=== PATIENT | female | born 1950 | race Caucasian/White ===

== ENCOUNTER 2019-07-30 08:38 | Day surgery (SDC) | payer MEDICARE, SELFPAY ==
[2019-07-29 17:31] VITALS: BMI 31.5
--- NOTE | 2019-07-30 08:30 | ECG_ITS ---
Measurements Intervals [place] Rate: 60 P: 145 DE: 142 QRS: 235 QRSD: 177 T: 58 QT: 499 QTc: 499 Interpretive Statements ELECTRONIC ATRIAL PACEMAKER ELECTRONIC VENTRICULAR PACEMAKER NO FURTHER INTERPRETATION IS POSSIBLE ATYPICAL ECG Electronically Signed On 07-30-2019 12:16:26 [employer] INS[employer]ER by Vasyl Aquino D.O.
[2019-07-30 09:19] LABS: Basophils Absolute Auto 0.1 K/mm3 (0.0-0.1); Basophils Percent Auto 0.8 % (0.2-1.2); Eosinophils Absolute Auto 0.1 K/mm3 (0-0.3); Eosinophils Percent Auto 1.7 % (0-4.4); Hematocrit 42.9 % (37.0-47.0); Hemoglobin 14.3 g/dL (12.0-15.0); Immature Granulocyte Absolute 0.03 K/mm3 (0.00-0.031); Immature Granulocyte Percent A 0.4 % (0-0.5); Lymphocytes Absolute Auto 2.27 K/mm3 (0.9-3.2); Lymphocytes Percent Auto 31.8 % (18.3-44.2); Mean Corpuscular HGB Conc 33.3 g/dl (32-36); Mean Corpuscular Hemoglobin 31.4 pg (26-34); Mean Corpuscular Volume 94.1 fl (80-100); Mean Platelet Volume 10.1 fl (7.4-10.4); Monocytes Absolute Auto 0.7 K/mm3 (0.1-0.6); Monocytes Percent Auto 9.2 % (2.6-8.5); Neutrophils Percent Auto 56.1 % (45.5-73.1); Platelet Count Result 222 k/mm3 (150-375); Red Blood Count 4.56 M/mm3 (4.2-5.4); Red Cell Distribution Width 13.3 % (11.5-14.5); White Blood Count 7.1 K/mm3 (4.5-10.0)
[2019-07-30 09:34] LABS: Blood Urea Nitrogen 18 mg/dL (7-17); Calcium 10.4 mg/dL (8.4-10.2); Carbon Dioxide 25 mmol/L (22-30); Chloride 103 mmol/L (98-107); Estimated CRCL calculation 65 ml/min; Estimated Glomerular Filt Rate > 60; Glucose 91 mg/dL (65-105); Potassium 4.7 mmol/L (3.4-5.0); Sodium 142 mmol/L (137-145)
--- NOTE | 2019-07-30 10:03 | PM.IMHP ---
H&P: HPI History of Present Illness Chief complaint: GERDA Narrative: Date of service: 07/30/2019 Mari Thao is a 68 year old female with a history of nonischemic dilated cardiomyopathy and a [employer] Bi V ICD as well as hypertension, MR and SVT ablation and sleep apnea. Her ICD has reached GERDA and she is here for a generator change. She is feeling well with no recent problems with fevers etc.. Most recent echo ejection fraction 2018 was 50-55%. Review of Systems Review of Systems: Narrative: Feeling well Constitutional: Constitutional: Denies fatigue and Denies weakness Eyes: Eyes: Denies blurry vision ENT: Reports Normal hearing present Cardiovascular: Cardiovascular: Denies chest pain, Denies leg edema and Denies lightheadedness Respiratory: Respiratory: Denies dyspnea Gastrointestinal: Gastrointestinal: Denies abdominal pain and Denies hematemesis Genitourinary: Genitourinary: Denies hematuria Musculoskeletal: Musculoskeletal: Denies back pain Integumentary/Breasts: Skin/Breast: Denies rash Neurologic: Denies headache(s) Psychiatric: Psychiatric: Denies no additional psychiatric complaints [facility] Past Medical History Medical History (Updated 07/30/19 @ 10:17 by Ysabel Garcia MD) Biventricular ICD (implantable cardioverter-defibrillator) in place Implanted 2010, generator change 2019 Hypertension Nonischemic dilated cardiomyopathy PATRICIA (obstructive sleep apnea) Surgical History Surgical History (Updated 07/30/19 @ 10:09 by Ysabel Garcia MD) History of radiofrequency ablation procedure for cardiac arrhythmia SVT ablation Family History Family History (Updated 07/30/19 @ 10:11 by Ysabel Garcia MD) Father Hypertension COPD (chronic obstructive pulmonary disease) Congestive heart failure FH: mental illness Mother Hypertension Hyperlipidemia Social History Social History (Updated 07/30/19 @ 10:12 by Ysabel Garcia MD) Smoking status: Never smoker Gender identity (if verbalized by the patient): Female Comments Retired in 2017, works as a part-time teacher. Meds Home Medications and Allergies Home Medications Medication Instructions Recorded Confirmed Type furosemide [Lasix] 20 mg PO DAILY 04/22/19 07/29/19 History metoprolol succinate 100 mg PO BID 04/22/19 07/29/19 History spironolactone 25 mg PO DAILY 04/22/19 07/29/19 History Ca-D3-mag vv-dkau-vbq-mireya-bor 1 tablet PO BID 07/29/19 07/29/19 History [Calcium 600-D3 Plus (mag-zinc)] albuterol sulfate 0.63 inh INHALATION QID PRN 07/29/19 07/29/19 History allopurinol 200 mg PO DAILY 07/29/19 07/29/19 History amlodipine-olmesartan 1 tablet PO DAILY 07/29/19 07/29/19 History aspirin [Aspirin Low Dose] 81 mg PO DAILY 07/29/19 07/29/19 History bupropion HCl 300 mg PO QAM 07/29/19 07/29/19 History ergocalciferol (vitamin D2) 50,000 unit PO WEEKLY 07/29/19 07/29/19 History [Vitamin D2] escitalopram oxalate 10 mg PO DAILY 07/29/19 07/29/19 History eszopiclone 3 mg PO DAILY PRN 07/29/19 07/29/19 History rosuvastatin 40 mg PO DAILY 07/29/19 07/29/19 History vitamin E 400 unit PO DAILY 07/29/19 07/29/19 History Allergies Allergy/AdvReac Type Severity Reaction Status Date / Time aripiprazole Allergy Unknown severe Verified 07/05/19 08:56 stimulation, ? brooks mirtazapine Allergy Unknown insomnia Verified 07/05/19 08:56 Sulfa (Sulfonamide Allergy Unknown unknown Verified 07/05/19 08:56 Antibiotics) lisinopril AdvReac Mild COUGHING Verified 07/05/19 08:56 Exam Const: General: no acute distress HENMT: Mouth: Yes moist mucous membranes Other: Upper dentures noted Eyes: EOM: EOMs intact bilaterally Neck: Neck: supple Resp: Effort & Inspection: normal respiratory effort Auscultation: clear to auscultation bilaterally Cardio: Rhythm: regular rhythm GI: GI Palp: Yes Soft to palpation and No Tenderness to palpation present (GI) Skin: General skin exam: no rashes or l
--- NOTE | 2019-07-30 10:19 | WPDMODSED ---
Moderate Sedation Note-Pt Data Patient Data Diagnosis: Bi V ICD at GERDA Present Complaint: Bi V ICD at GERDA History of nonischemic cardiomyopathy with improvement of LV function Procedure to be performed/Plan: Conscious sedation new line generator change Allergies Allergy/AdvReac Type Severity Reaction Status Date / Time aripiprazole Allergy Unknown severe Verified 07/05/19 08:56 stimulation, ? brooks mirtazapine Allergy Unknown insomnia Verified 07/05/19 08:56 Sulfa (Sulfonamide Allergy Unknown unknown Verified 07/05/19 08:56 Antibiotics) lisinopril AdvReac Mild COUGHING Verified 07/05/19 08:56 Home Medications Medication Instructions Recorded Confirmed Type furosemide [Lasix] 20 mg PO DAILY 04/22/19 07/29/19 History metoprolol succinate 100 mg PO BID 04/22/19 07/29/19 History spironolactone 25 mg PO DAILY 04/22/19 07/29/19 History Ca-D3-mag jd-aogm-gkl-mireya-bor 1 tablet PO BID 07/29/19 07/29/19 History [Calcium 600-D3 Plus (mag-zinc)] albuterol sulfate 0.63 inh INHALATION QID PRN 07/29/19 07/29/19 History allopurinol 200 mg PO DAILY 07/29/19 07/29/19 History amlodipine-olmesartan 1 tablet PO DAILY 07/29/19 07/29/19 History aspirin [Aspirin Low Dose] 81 mg PO DAILY 07/29/19 07/29/19 History bupropion HCl 300 mg PO QAM 07/29/19 07/29/19 History ergocalciferol (vitamin D2) 50,000 unit PO WEEKLY 07/29/19 07/29/19 History [Vitamin D2] escitalopram oxalate 10 mg PO DAILY 07/29/19 07/29/19 History eszopiclone 3 mg PO DAILY PRN 07/29/19 07/29/19 History rosuvastatin 40 mg PO DAILY 07/29/19 07/29/19 History vitamin E 400 unit PO DAILY 07/29/19 07/29/19 History Sedation/Anesthesia: No previous sedation/anesthesia problems (including family history). [facility] Past Medical History Medical History Biventricular ICD (implantable cardioverter-defibrillator) in place Implanted 2010, generator change 2019 Hypertension Nonischemic dilated cardiomyopathy PATRICIA (obstructive sleep apnea) Surgical History Surgical History History of radiofrequency ablation procedure for cardiac arrhythmia SVT ablation Family History Family History Father Hypertension COPD (chronic obstructive pulmonary disease) Congestive heart failure FH: mental illness Mother Hypertension Hyperlipidemia Social History Social History (Updated 07/30/19 @ 10:12 by Ysabel Garcia MD) Smoking status: Never smoker Gender identity (if verbalized by the patient): Female Mod Sed Physical Exam Physical Exam Pre Procedural Exam: Normal: Appearance, Eyes, Ears, Nose, Neck, Throat, Airway (Upper denture in place), Lungs, Heart Size, Heart Rate, Heart Rhythm, Neuro Exam, Abdomen, Liver, Extremities and Skin (ICD site is well healed) Hours since solid foods: 12 Hours since liquid intake: 12 Internal Medicine - PN: Obj Da Labs CBC & Chem 7: 07/30/19 09:05 07/30/19 09:05 Labs: Laboratory Results - last 24 hr 07/30/19 07/30/19 09:05 09:05 WBC 7.1 RBC 4.56 Hgb 14.3 Hct 42.9 MCV 94.1 MCH 31.4 MCHC 33.3 RDW 13.3 Plt Count 222 MPV 10.1 Immature Gran % (Auto) 0.4 Neut % (Auto) 56.1 Lymph % (Auto) 31.8 [place] % (Auto) 9.2 H Eos % (Auto) 1.7 Baso % (Auto) 0.8 Lymph # (Auto) 2.27 [place] # (Auto) 0.7 H Eos # (Auto) 0.1 Baso # (Auto) 0.1 Abs Immat Gran (auto) 0.03 Absolute Neuts (auto) 4.0 Absolute Nucleated RBC 0.0 Nucleated RBC % 0.0 Sodium 142 Potassium 4.7 Chloride 103 Carbon Dioxide 25 BUN 18 H Creatinine 0.90 Estim Creat Clear Calc 65 Estimated GFR > 60 Glucose 91 Calcium 10.4 H ASA Classification/Sedation ASA Classification/Sedation ASA Class: III Risks: Risks, benefits and alternatives explained and patient/family accepted plan for sedation. Patient re
--- NOTE | 2019-07-30 12:00 | P.OP_ITS ---
Procedure Note - Detailed Date of procedure: 08/12/19 Pre-op diagnosis: GERDA Bi V ICD at GERDA Post-op diagnosis: same Procedure performed: conscious sedation generator change Description of procedure: PROCEDURE: Concious sedation Generator change UNDERLYING RHYTHM: NSR CONSCIOUS SEDATION: Assessment: The patient has no history of anesthesia problems. The oropharynx is clear. The patient was deemed to be a good candidate for conscious sedation. The patient had continuous hemodynamic and oximetric monitoring during the procedure. Start time: 1103 Completion time: 1148 Total conscious sedation time: 45 minutes Medications: Versed 4 mg, fentanyl 50 mcg IV push Trained observer: Carolann Hobson RN Outcome: The patient tolerated the procedure well with no complications. PROCEDURE: After informed consent, the patient is brought to the dental laboratory technician apprentice and the left prepectoral area was prepped and draped in usual fashion. The patient was given a prophylactic antibiotic intravenously with Ancef. After conscious sedation as described above, the area was anesthetized with 1% lidocaine. A skin incision is made with the Plasma Blade and carried down to the pacing capsule which was also incised. Hemostasis is obtained using the Plasma Blade. The lead/s was/were freed from the underlying capsule and the pulse generator was delivered from the pocket. The lead/s was/were disconnected from the ex isting device and reconnected to the new device. A gentle tug could not remove it/them. The device and leads were interrogated and found to be functioning appropriately. The area was copiously irrigated with antibiotic-containing solution. The device was replaced in the pocket. The subcutaneous tissues were closed in a two-layer fashion with interrupted 2 0 Vicryl sutures and the skin was closed in a continuous fashion using 4 0 Vicryl. The area was cleansed, an Aquacel dressing applied. The patient tolerated the procedure well with no complications. Estimated blood loss was negligible. DEVICE INFORMATION: New pulse generator: [employer] [id number] Existing right atrial lead: [employer] Existing Right ventricular lead: [employer] Existing left ventricular lead: [employer] THRESHOLD INFORMATION: P-wave sensing was 1.0 mV, impedance 490 Ohms, threshold 0.5 volts at 0.5 milliseconds Right ventricular lead: R-wave sensing greater than 12 mV, impedance 490 Ohms, threshold 1.25 volts at 0.5 milliseconds Left ventricular lead: Impedance 410 Ohms, threshold 0.5 volts at 0.5 millisecond RV DF lead: Impedance 89 Ohms Implants: [employer]/ [place] biventricular ICD, pulse generator model number [id number] Anesthesia: local ( with conscious sedation) Surgeon: Ysabel Garcia MD Estimated blood loss (mL): 5 Drains: No Packing: No Pathology: none sent Complications: No immediate complications Condition: stable Disposition: same day Findings: Uneventful pulse generator change.
[2019-07-30 12:05] VITALS: BP 121/81; PULSE 69; RESP 14; TEMP 36.3; O2SAT 94
[2019-07-30 12:20] VITALS: BP 115/62; PULSE 63; RESP 14; O2SAT 92
[2019-07-30 12:31] VITALS: BP 108/53; PULSE 72; RESP 16; O2SAT 96
[2019-07-30 12:50] VITALS: BP 120/68; PULSE 74; RESP 18; O2SAT 95
[2019-07-30 13:05] VITALS: BP 117/68; PULSE 68; RESP 17; O2SAT 94
--- NOTE | 2019-07-30 13:34 | SUR.PHASEII ---
1315-pt given D/C orders and instructions. Pressure dressing removed per MD order. Aquacel remains intact and without any evidence of bleeding or discharge. Confirmed antibiotic prescription sent to pharmacy properly. PIV removed intact. Taken via wheelchair to waiting vehicle. No distress noted at time of departure.
== END 2019-07-30 13:15 | disposition home or self-care (01) ==
PROVIDERS: PCP Physician Assistant; Visit Provider Internal Medicine Cardiovascular Disease
PROC: 0JPT0PZ Removal of Cardiac Rhythm Related Device from Trunk Subcutaneous Tissue and Fascia, Open Approach (ICD-10-PCS; CPT 33262; principal; 2019-07-30 10:00)
DX: Z45.02 Encounter for adjustment and management of automatic implantable cardiac defibrillator (principal); I42.0 Dilated cardiomyopathy; I10 Essential (primary) hypertension; G47.33 Obstructive sleep apnea (adult) (pediatric); Z79.82 Long term (current) use of aspirin
CPT/HCPCS: 33262; 36415; 80048; 85025; 93005; C1882; J0690; J2250; J3010; J7040

== ENCOUNTER → 2020-12-25 15:19 | Outpatient (CLI) | payer MEDICARE, SELFPAY ==
--- NOTE | ~2020-12-25 | MM_ITS ---
EXAMINATION: MM screening tyron BI w tio HISTORY: Screening TECHNIQUE: Craniocaudal and mediolateral oblique 3-D tomosynthesis images were obtained and synthetic 2-D images were generated. CAD analysis was submitted and interpreted. COMPARISON: Comparison to multiple prior studies sequentially, with oldest reviewed study dated 01/20. BREAST PARENCHYMAL COMPOSITION: There are scattered areas of fibroglandular density. FINDINGS: There is a new 8mm mass in the posterior central aspect of the left breast. The right breas t is stable without evidence for malignancy. IMPRESSION: 1. New 8 mm left breast mass. 2. Additional spot compression and mediolateral views with possible follow-up breast ultrasound recom mended. BI-RADS Category 0: Incomplete: Needs additional imaging evaluation. Reviewed, dictated and finalized at location A. IMPRESSION: 1. New 8 mm left breast mass. 2. Additional spot compression and mediolateral views with possible follow-up b reast ultrasound recommended. BI-RADS Category 0: Incomplete: Needs additional imaging evaluation.
== END ==
PROVIDERS: Visit Provider Physician Assistant
DX: Z12.31 Encounter for screening mammogram for malignant neoplasm of breast (principal); R92.8 Other abnormal and inconclusive findings on diagnostic imaging of breast
CPT/HCPCS: 77063; 77067

== ENCOUNTER 2022-03-02 07:49 | Emergency (ER) | payer OTHER, MEDICARE, SELFPAY ==
[2022-03-02] VITALS (19 sets, daily range): BP systolic 107–129; BP diastolic 60–77; PULSE 67–77; RESP 14; TEMP 36.8; O2SAT 87–95
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
--- NOTE | 2022-03-02 07:56 | ECG_ITS ---
Measurements Intervals [place] Rate: 72 P: 7 ND: 201 QRS: -11 QRSD: 119 T: 87 QT: 374 QTc: 412 Interpretive Statements ATRIAL SENSE- ELECTRONIC VENTRICULAR PACEMAKER BASELINE ARTIFACT- I, III, AVR, AVL, AVF NO FURTHER INTERPRETATION IS POSSIBLE ATYPICAL ECG COMPARED TO ECG 07/30/2019 12:08:42 NO SIGNIFICANT CHANGES Electronically Signed On 03-02-2022 10:36:35 CDT by Vasyl Aquino D.O.
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
[2022-03-02 08:30] LABS: Basophils Absolute Auto 0.1 K/mm3 (0.0-0.1); Basophils Percent Auto 0.9 % (0.2-1.2); Eosinophils Absolute Auto 0.2 K/mm3 (0-0.3); Eosinophils Percent Auto 2.1 % (0-4.4); Hematocrit 40.7 % (37.0-47.0); Hemoglobin 13.1 g/dL (12.0-15.0); Immature Granulocyte Absolute 0.02 K/mm3 (0.00-0.031); Immature Granulocyte Percent A 0.3 % (0-0.5); Lymphocytes Absolute Auto 1.98 K/mm3 (0.9-3.2); Lymphocytes Percent Auto 28.2 % (18.3-44.2); Mean Corpuscular HGB Conc 32.2 g/dl (32-36); Mean Corpuscular Hemoglobin 31.9 pg (26-34); Mean Platelet Volume 10.7 fl (7.4-10.4); Monocytes Absolute Auto 0.7 K/mm3 (0.1-0.6); Neutrophils Absolute Auto 4.1 K/mm3 (1.3-6.7); Neutrophils Percent Auto 58.5 % (45.5-73.1); Platelet Count Result 163 k/mm3 (150-375); Red Blood Count 4.11 M/mm3 (4.2-5.4); Red Cell Distribution Width 13.4 % (11.5-14.5)
[2022-03-02 08:41] LABS: Prothrombin Time 12.5 Seconds (11.1-14.7)
[2022-03-02 08:42] LABS: Partial Thromboplastin Time 31.1 SECONDS (22.3-36.8)
[2022-03-02 08:46] LABS: Alanine Aminotransferase 35 U/L (6-35); Albumin Level 4.7 g/dL (3.5-5.1); Alkaline Phosphatase 89 U/L (38-126); Anion Gap 12 mmol/L (8-16); Aspartate Amino Transferase 36 U/L (14-36); Bilirubin,Total 0.4 mg/dL (0.2-1.3); Blood Urea Nitrogen 25 mg/dL (7-17); Calcium 10.1 mg/dL (8.4-10.2); Carbon Dioxide 24 mmol/L (22-30); Chloride 105 mmol/L (98-107); Estimated CRCL calculation 33 ml/min; Estimated Glomerular Filt Rate 30; Glucose 98 mg/dL (65-110); Potassium 4.7 mmol/L (3.4-5.0); Sodium 141 mmol/L (137-145)
[2022-03-02 08:57] LABS: Troponin I < 0.012 ng/mL (0.000-0.034)
--- NOTE | 2022-03-02 09:45 | PC.NURSE ---
Pt desating. placed on 2L O2 by nasal cannula. informed.
[2022-03-02] MEDS: SODIUM CHLORIDE 0.9% IV 1,000 ML 100 ML IV CONT (10:06)
== END 2022-03-02 11:57 | disposition short-term general hospital (02) ==
PROVIDERS: Emergency Provider Emergency Medicine; PCP Physician Assistant
DX: S22.20XA Unspecified fracture of sternum, initial encounter for closed fracture (principal); V49.49XA Driver injured in collision with other motor vehicles in traffic accident, initial encounter; N63.20 Unspecified lump in the left breast, unspecified quadrant; I10 Essential (primary) hypertension; I42.0 Dilated cardiomyopathy; G47.33 Obstructive sleep apnea (adult) (pediatric); Z95.810 Presence of automatic (implantable) cardiac defibrillator; Z79.82 Long term (current) use of aspirin; Z79.51 Long term (current) use of inhaled steroids
CPT/HCPCS: 36415; 71260; 80053; 84484; 85025; 85610; 85730; 93005; 96365; 96366; 99285; J0131; J7030; Q9967

== ENCOUNTER → 2022-11-30 09:16 | Outpatient (CLI) | payer MEDICARE, SELFPAY ==
--- NOTE | ~2022-11-30 | US_ITS ---
Corrected Report Correction to Ordering Provider 12/09/2022 Marcelo This report was recreated on 12/09/22. Original report was signed by Jl Jama M.D. on 11/30/2022 11:42 CDT Thyroid ultrasound. Clinical History: Subclinical hyperthyroidism Findings: Real-time sonography of the thyroid gland was performed. The right lobe measures 6.6 x 3.1 x 4.5 cm. The left lobe measures 5.3 x 2.1 x 1.8 cm. The isthmus is 5 mm in AP diameter. There is a heterogeneous solid circumscribed nodule the right mid to lower pole measuring 3.8 x 3.6 x 3.9 cm. At the right upper pole, there is a 0.8 cm nodule with otherwise similar imaging characteristics. There are several hypoechoic left thyroid lobe nodules, largest measuring 1.3 cm in maximum diameter. Impression: 3.9 cm TR-4 nodule in the right mid to lower pole. FNA recommended to establish a histologic diagnosis. Additional smaller thyroid nodules, as detailed above. Annual follow-up recommended for these nodules. Reviewed, dictated and finalized at location . MTDD Impression: 3.9 cm TR-4 nodule in the right mid to lower pole. FNA recommended to establish a histologic diagnosis. Additional smaller thyroid nodules, as detailed above. Annual follow-up recomme nded for these nodules.
== END ==
PROVIDERS: PCP Physician Assistant
DX: E05.90 Thyrotoxicosis, unspecified without thyrotoxic crisis or storm (principal); E04.2 Nontoxic multinodular goiter
CPT/HCPCS: 76536

== ENCOUNTER 2023-09-29 08:45 | Outpatient (RCR) | payer MEDICARE, SELFPAY ==
--- NOTE | 2023-08-16 10:33 | OPREHPOC ---
Outpatient Therapy Plan of Care This is a Multidisciplinary Plan of Care that may contain components documented by all disciplines (PT, OT, and ST.) PT Problem 1 PT Problem #1 Knowledge Deficit PT Goal 1 Goal *indep with HEP PT Problem 2 PT Problem #2 Pain PT Goal 1 Goal 1* pain rating at worst of 6/10 2* pt report headaches every other day 3* self assessment Neck Disability Index score of 30% limitation 4* cervical rotation to L without pain increase PT Problem 3 PT Problem #3 Impaired Flexibility PT Goal 1 Goal improve cervical ROM for driving and self care tasks 1* rotation L 60' PT Problem 4 PT Problem #4 Impaired Strength PT Goal 1 Goal increase cervical-thoracic and shoulder strength, to increase self care and home task performance: 1* pt stand with minimal forward shoulder rotation 2* pt perform sitting strengthening exercises x 20 reps
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
--- NOTE | 2023-08-29 14:40 | PCPTNOTE ---
Pt no showed visit today, she had times confused. She was reminded of Monday's appt. at 11:15.
--- NOTE | 2023-09-07 12:46 | PCPTNOTE ---
Pt canceled due after going grocery shopping and was too tired to make therapy.
--- NOTE | 2023-09-20 12:47 | PCPTNOTE ---
pt did not show for today's reevaluation appt. Called her, she stated she forgot about appt and wanted to reschedule.
--- NOTE | 2023-09-29 09:15 | PCPTNOTE ---
pt did not show for today's reeval appt. Called her and left her voice mail about missed appt.
--- NOTE | 2023-10-17 14:15 | PTOPDC ---
Assessment and note entered by Lorraine Jo, PT Discharge Information Assessment Status Discharge - Pt Not Present Diagnosis neck and shoulder pain Onset Jun 2023 Assessment PT Clinical Summary Mari has received 7 PT sessions. She did not show for 2 scheduled reevaluation appointments in September. Therefore, she will be discharged at this time. The goals were not addressed. Plan of Care PT Services Indicated No
== END 2023-10-17 14:36 | disposition home or self-care (01) ==
LOC: ANHPT 08:45
PROVIDERS: PCP Physician Assistant; Visit Provider Physician Assistant
DX: M54.2 Cervicalgia (principal); M60.11 Interstitial myositis, shoulder
CPT/HCPCS: 97110; 97140; 97162; 97530; 99199

== ENCOUNTER 2025-03-27 08:55 | Outpatient (CLI) | payer MEDICARE, SELFPAY ==
--- NOTE | ~2025-03-27 | US_ITS ---
EXAMINATION: US aorta DATE: 03/27/2025 10:10 INDICATION: Abdominal aortic aneurysm screening. Family history of abdominal aortic aneurysm. TECHNIQUE: Grayscale, color Doppler, and pulsed Doppler images of the aorta and common iliac arteries were obtained. COMPARISON: Ultrasound 01/11/17 FINDINGS: The aorta is normal in caliber. The right common iliac artery is normal in caliber. The left common iliac artery is normal in caliber. IMPRESSION: 1. No abdominal aortic aneurysm. Reviewed, dictated and finalized at location E.
--- OUTSIDE RECORDS SUMMARY | 2025-03-27 09:33 | XMS_ITS | Encounter Summary ---
Author Organization [facility] Care Team Providers Care Diesel Lube Tech Name Role Phone Renay Mckeon RN Unavailable [phone] Ryley Suárez MD Unavailable [phone] Billie Ames NP Primary Care Provider [phone] Encounter Details Date Type Department Care Team (Latest Contact Info) Description 10/04/2016 Orders Only [facility] Provider, MD Mary Anne [address] [place] [address] Social History Tobacco Use Types Packs/Day Years Used Date Smoking Tobacco: Former Alcohol Use Standard Drinks/Week Comments Yes 0 (1 standard drink = 0.6 oz pur e alcohol) Comments Unknown Sex and Gender Information Value Date Recorded Sex Assigned at Female 08/27/2018 11:46 AM CDT Legal Sex Female 8:15 AM TRANSFORMATION ARCHITECT Gender Identity Female 08/27/2018 11:46 AM CDT Sexual Orientation Straight 08/27/2018 11 :46 AM CDT documented as of this encounter Plan of Treatment Not on file documented as of this encounter Procedures Procedure Name Priority Date/Time Associated Diagnosis Comments CARDIOLOGY REPORT 10/04/2016 12: 00 AM CDT documented in this encounter Results * CARDIOLOGY REPORT (10/04/2016 12:00 AM CDT) Anatomical Region Laterality Modality Other Narrative 10/04/2016 12:00 AM CDT Ordered by an unspecified provider. us Historical Provider [facility] FAHAD HANEY Final Result documented in this encounter Visit Diagnoses Not on filedocumented in this encounter Care Teams Diesel Lube Tech Relationship Specialty Start Date End Date Billie Ames NP [address] [place] [address] PCP - General Family Medicine 08/19/24 Renay Mckeon, RN Solution Developer 03/09/22 03/17/22 Ryley Suárez MD [address] [place] [address] Referring Physician Internal Medicine 01/19/23 documented as of this encounter
--- OUTSIDE RECORDS SUMMARY | 2025-03-27 09:33 | XMS_ITS | Encounter Summary ---
Author Organization [facility] Address [address] [facility] [address] [place] [address] Care Team Providers Care Warehouseman Name Role Phone Renay Mckeon RN Unavailable [phone] Ryley Suárez MD Unavailable [phone] Billie Ames NP Primary Care Provider [phone] Encounter Details Date Type Department Care Team (Late st Contact Info) Description 08/01/2016 Orders Only [facility] Provider, MD Mary Anne [address] [place] [address] Social History Tobacco Use Types Packs/Day Years Used Date Smoking Tobacco: Former Alcohol Use Standard Drinks/Week Comments Yes 0 (1 standard drink = 0.6 oz pur e alcohol) Comments Unknown Sex and Gender Information Value Date Recorded Sex Assigned at Female 08/27/2018 11:46 AM CDT Legal Sex Female 8:15 AM OPHTHALMIC LENS INSPECTOR Gender Identity Female 08/27/2018 11:46 AM CDT Sexual Orientation Straight 08/27/2018 11 :46 AM CDT documented as of this encounter Plan of Treatment Not on file documented as of this encounter Procedures Procedure Name Priority Date/Time Associated Diagnosis Comments CARDIOLOGY REPORT 08/01/2016 12: 00 AM OPHTHALMIC LENS INSPECTOR CARDIOLOGY REPORT 08/01/2016 documented in this encounter Results * CARDIOLOGY REPORT (08/01/2016 12:00 AM OPHTHALMIC LENS INSPECTOR) Anatomical Region Laterality Modality Other Narrative 08/01/2016 12:00 AM OPHTHALMIC LENS INSPECTOR Ordered by an unspecified provider. us Historical Provider [facility] PROCE DURES Final Result * CARDIOLOGY REPORT (08/01/2016) Anatomical Region Laterality Modality Other Narrative 08/01/2016 Ordered by an unspecified provider. us Historical Provider [facility] PROCE DURES Final Result documented in this encounter Visit Diagnoses Not on filedocumented in this encounter Care Teams Warehouseman Relationship Specialty Start Date End Date Billie Ames NP [address] [place] [address] PCP - General Family Medicine 08/19/24 Renay Mckeon, RN Neurology Tech 03/09/22 03/17/22 Ryley Suárez MD [address] [place] [address] Referring Physician Internal Medicine 01/19/23 documented as of this encounter
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
--- OUTSIDE RECORDS SUMMARY | 2025-03-27 09:33 | XMS_ITS | Encounter Summary ---
Author Organization [facility] Medical Group Address [address] [facility] [address] [place] [address] Care Team Providers Care Business Account Manager Name Role Phone Renay Mckeon RN Unavailable [phone] Ryley Suárez MD Unavailable [phone] Billie Ames NP Primary Care Provider [phone] Encounter Details Date Type Department Care Team (Late st Contact Info) Description 09/13/2016 Orders Only [facility] Provider, MD Mary Anne [address] [place] [address] Social History Tobacco Use Types Packs/Day Years Used Date Smoking Tobacco: Former Alcohol Use Standard Drinks/Week Comments Yes 0 (1 standard drink = 0.6 oz pur e alcohol) Comments Unknown Sex and Gender Information Value Date Recorded Sex Assigned at Female 08/27/2018 11:46 AM CDT Legal Sex Female 8:15 AM ORTHOTICS PROSTHETICS ASSISTANT Gender Identity Female 08/27/2018 11:46 AM CDT Sexual Orientation Straight 08/27/2018 11 :46 AM CDT documented as of this encounter Plan of Treatment Not on file documented as of this encounter Procedures Procedure Name Priority Date/Time Associated Diagnosis Comments CARDIOLOGY REPORT 09/13/2016 documented in this encounter Results * CARDIOLOGY REPORT (09/13/2016) Anatomical Region Laterality Modality Other Narrative 09/13/2016 Ordered by an unspecified provider. us Historical Provider [facility] FAHAD HANEY Final Result documented in this encounter Visit Diagnoses Not on filedocumented in this encounter Care Teams Business Account Manager Relationship Specialty Start Date End Date Billie Ames NP [address] [place] [address] PCP - General Family Medicine 08/19/24 Renay Mckeon, LAWANDA Account Coordinator 03/09/22 03/17/22 Ryley Suárez MD [address] [place] [address] Referring Physician Internal Medicine 01/19/23 documented as of this encounter
--- OUTSIDE RECORDS SUMMARY | 2025-03-27 09:33 | XMS_ITS | Encounter Summary ---
Author Organization [facility] Address [address] [place] [address] Care Team Providers Care Metal Weigher Name Role Phone Marcelino Wilcox PA-C Primary Care Provider [phone] Reason for Visit * Reason Onset Date Comments MEDICATION REFILL 12/13/2023 Encounter Details Date Type Department Care Team (Late st Contact Info) Description 12/13/2023 Refill [facility] - Endocrinology [address] [place] [address], [place] [id number] Aaron Trujillo MD [address] [place] [address] MEDICATION REFILL Social History Tobacco Use Types Packs/Day Years Used Date Smoking Tobacco: Former Cigarettes 0.3 25 0 11/19/1968 - 08/29/1992 Smokeless Tobacco: Never Alcohol Use Standard Drinks/Week Comments Not Currently [...] money to buy more. Never true 03/08/20 Within the past 12 months, t he food you bought just didn't last and you didn't have money to get more. Never true 03/08/2022 Comments Unknown Sex and Gender Information Value Date Recorded Sex Assigned at Not on file Legal Sex Female 6:52 PM SPLICING SUPERVISOR Gender Identity Not on file Sexual Orientation Not on file documented as of this encounter Functional Status * Is person deaf or have serious hearing difficulty? Answer Date of Assessment Author No 03/03/2022 11:00 PM CDT Volodymyr Ryder RN * Is person blind or have serious difficulty seeing? Answer Date of Assessment Author No 03/03/2022 11:00 PM CDT Volodymyr Ryder RN * Does person have serious difficulty walking/climbing stairs? Answer Date of Assessment Author No 03/03/2022 11:00 PM CDT Volodymyr Ryder RN * Does person have difficulty dressing/bathing? Answer Date of Assessment Author No 03/03/2022 11:00 PM CDT Volodymyr Ryder RN * Does person have difficulty doing errands alone? Answer Date of Assessment Author No 03/03/2022 11:00 PM CDT Volodymyr Ryder RN documented as of this encounter Mental Status * Does person have difficulty concentrating/remembering/making decisions? Answer Entry Date Author No 03/03/2022 11:00 PM LISAT Volodymyr Ryder RN documented in this encounter Miscellaneous Notes * Telephone Encounter - Nena Ricks LPN - 12/13/2023 8:56 AM CDT Duplicate refill request documented in this encounter Plan of Treatment Not on file documented as of this encounter Visit Diagnoses Not on filedocumented in this encounter Care Teams Metal Weigher Relationship Specialty Start Date End Date Marcelino Wilcox PA-C [address] [place] [phone] PCP - General Physician Band Instrument Repairer 03/02/22 documented as of this encounter
--- OUTSIDE RECORDS SUMMARY | 2025-03-27 09:33 | XMS_ITS | Encounter Summary ---
Author Organization [facility] Address [address] [facility] [place] [address] Care Team Providers Care Tip Puncher Name Role Phone Marcelino Wilcox PA-C Primary Care Provider [phone] Encounter Details Date Type Department Care Team (Late st Contact Info) Description 12/06/2022 Telephone [facility] - Endocrinology [address] [place] [phone] Janie Ramos, DO [address] [place] [address] Social History Tobacco Use Types Packs/Day Years [...] on file Legal Sex Female 6:52 PM BREAKER UP Gender Identity Not on file Sexual Orientation [...] encounter Miscellaneous Notes * Telephone Encounter - Linsey Abarca - 12/06/2022 11:44 AM CDT Current Provider name: Dr. Janie Ramos Reason for call: Shanice with [facility] [phone] needs Ms[facility]ong Mari Thao's images of thyroid Signed by Dr. Janie Ramos's attending and faxed back to her [phone]. She faxed them to office earlier this morning 12/06/22, I advised doctors are in clinic allow time for them to see and review info. Thanks. Patient Call Back number: [phone] documented in this encounter Plan of Treatment Not on file documented as of this encounter Visit Diagnoses Not on filedocumented in this encounter Care Teams Tip Puncher Relationship Specialty Start Date End Date Marcelino Wilcox PA-C [address] [place] [phone] PCP - General Physician Child Psychiatrist 03/02/22 documented as of this encounter
--- OUTSIDE RECORDS SUMMARY | 2025-03-27 09:33 | XMS_ITS | Encounter Summary ---
Author Organization [facility] Care Team Providers Care Hardness Inspector Name Role Phone Renay Mckeon RN Unavailable [phone] Ryley Suárez MD Unavailable [phone] Billie Ames NP Primary Care Provider [phone] Encounter Details Date Type Department Care Team (Latest Contact Info) Description 08/15/2016 Orders Only [facility] Provider, MD Mary Anne [address] [place] [address] Social History Tobacco Use Types Packs/Day Years Used Date Smoking Tobacco: Former Alcohol Use Standard Drinks/Week Comments Yes 0 (1 standard drink = 0.6 oz pur e alcohol) Comments Unknown Sex and Gender Information Value Date Recorded Sex Assigned at Female 08/27/2018 11:46 AM CDT Legal Sex Female 8:15 AM PARTY PLAN SALES CONSULTANT Gender Identity Female 08/27/2018 11:46 AM CDT Sexual Orientation Straight 08/27/2018 11 :46 AM CDT documented as of this encounter Plan of Treatment Not on file documented as of this encounter Procedures Procedure Name Priority Date/Time Associated Diagnosis Comments SCAN - LABS 08/15/2016 12:00 AM PARTY PLAN SALES CONSULTANT documented in this encounter Results * SCAN - LABS (08/15/2016 12:00 AM PARTY PLAN SALES CONSULTANT) Narrative 08/15/2016 12:00 AM PARTY PLAN SALES CONSULTANT Ordered by an unspecified provider. us Historical Provider Final Res ult documented in this encounter Visit Diagnoses Not on filedocumented in this encounter Care Teams Hardness Inspector Relationship Specialty Start Date End Date Billie Ames NP [address] [place] [address] PCP - General Family Medicine 08/19/24 Renay Mckeon, RN Window Shade Cloth Sewer 03/09/22 03/17/22 Ryley Suárez MD [address] [address] Referring Physician Internal Medicine 01/19/23 documented as of this encounter
--- OUTSIDE RECORDS SUMMARY | 2025-03-27 09:33 | XMS_ITS | Encounter Summary ---
Author Organization [facility] Facility Care Team Providers Care Plate Gauger Name Role Phone Renay Mckeon RN Unavailable [phone] Ryley Suárez MD Unavailable [phone] Billie Ames NP Primary Care Provider [phone] Encounter Details Date Type Department Care Team (Latest Contact Info) Description 10/03/2016 Orders Only [facility] Provider, MD Mary Anne [address] [place] [address] Social History Tobacco Use Types Packs/Day Years Used Date Smoking Tobacco: Former Alcohol Use Standard Drinks/Week Comments Yes 0 (1 standard drink = 0.6 oz pur e alcohol) Comments Unknown Sex and Gender Information Value Date Recorded Sex Assigned at Female 08/27/2018 11:46 AM CDT Legal Sex Female 8:15 AM CYCLE ANALYST Gender Identity Female 08/27/2018 11:46 AM CDT Sexual Orientation Straight 08/27/2018 11 :46 AM CDT documented as of this encounter Plan of Treatment Not on file documented as of this encounter Procedures Procedure Name Priority Date/Time Associated Diagnosis Comments PROCEDURE - RESULT 10/03/2016 12 :00 AM CDT documented in this encounter Results * PROCEDURE - RESULT (10/03/2016 12:00 AM CDT) Narrative 10/03/2016 12:00 AM CDT Ordered by an unspecified provider. us Historical Provider Final Res ult documented in this encounter Visit Diagnoses Not on filedocumented in this encounter Care Teams Plate Gauger Relationship Specialty Start Date End Date Billie Ames NP [address] [place] [address] PCP - General Family Medicine 08/19/24 Renay Mckeon, LAWANDA Closet Builder 03/09/22 03/17/22 Ryley Suárez MD [address] [place], [place] [id number] Referring Physician Internal Medicine 01/19/23 documented as of this encounter
--- OUTSIDE RECORDS SUMMARY | 2025-03-27 09:33 | XMS_ITS | Encounter Summary ---
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 Name Role Phone Renay Mckeon RN Unavailable [phone] Ryley Suárez MD Unavailable [phone] Billie Ames NP Primary Care Provider [phone] Encounter Details Date Type Department Care Team (Late st Contact Info) Description 06/14/2016 Orders Only [facility] Provider, MD Mary Anne [address] [place] [id number] Social History Tobacco Use Types Packs/Day Years Used Date Smoking Tobacco: Former Alcohol Use Standard Drinks/Week Comments Yes 0 (1 standard drink = 0.6 oz pur e alcohol) Comments Unknown Sex and Gender Information Value Date Recorded Sex Assigned at Female 08/27/2018 11:46 AM CDT 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
--- OUTSIDE RECORDS SUMMARY | 2025-03-27 09:34 | XMS_ITS | Clinical Summary ---
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 insomnia not due to a substance or known physiological condition 08/01/2016 08/15/2024 Assessment & Plan (01/17/2022 11:15 AM CDT): P.r.n. meds Assessment & Plan (12/28/2020 10:56 AM CDT): This is improved will continue to for to follow Assessment & Plan (10/01/2019 3:16 PM CDT): This is chronic and controlled with current medications will continue current meds Sleep related bruxism 08/01/20162024 Overweight 11/19/2015 08/15/2024 Arthralgia of temporomandibular joint 11/03/2015 03/19/2025 Sleep disturbance 11/03/2015 08/15/2024 Assessment & Plan (04/16/2020 4:18 PM BREAKER TABLE WORKER): Treated with melatonin Multiple-type hyperlipidemia 05/27/2014 02/04/2021 Overview (09/16/2016): Mixed hyperlipidemia Assessment & Plan (08/09/2017 5:53 PM BREAKER TABLE WORKER): 02/2017 total cholesterol 166, HDL 40, TG 153, LDL 95 Continue rosuvastatin 40 milligrams daily. Abnormal liver function tests 06/02/2011 08/20/2024 Assessment & Plan (07/27/2023 10:54 AM BREAKER TABLE WORKER): Stable and watching diet Mitral valve disorder 10/28/20102020 Paroxysmal supraventricular tachycardia (CMS/HCC) 07/28/2010 02/04/2021 Old myocardial infarction 07/01/2010 Hypercalcemia 12/12/2007 08/20/2024 Symptomatic menopausal or fe male climacteric states 12/12/2007 08/20/2024 Cardiomegaly 04/06/2006 07/26/2021 Other depressive disorder 04/06/2006 Generalized anxiety disorder 12/16/2005 08/15/2024 Assessment & Plan (06/30/2021 10:20 AM BREAKER TABLE WORKER): CPM Assessment & Plan (12/08/2020 11:01 AM CDT): Patient appears stable in clinic she does get herself worked up at time she is seen Psychiatry but feels stable will continue to follow. I have encouraged her to follow-up with her psychiatrist Assessment & Plan (04/16/2020 4:17 PM BREAKER TABLE WORKER): Images from the original note were not included. The pharmacologic and nonpharmacologic treatment of anxiety/depression were discusses with the patient. Included was a discussion of the current treatment regimens and their proposed mechanism of action concerning brain chemistry. Discussed the role of counseling as an adjunct to medications should we agree to pursue this. The patient is non-suicidal, and agrees to inform us of any change in this status follow up in 4-6 weeks- sooner if any problems Encounters Date Type Department Care Team Description 5 Telephone [facility] Cardiology [address] [place] [address] [place] [phone] Yeny Walden, 5 Telephone [facility] Cardiology [address] [place] [address] [place] [phone] Betzy Snyder NP Prior Auth 5 9:00 AM CDT Ancillary Procedure [address] [phone] Other congestive heart failure; Biventricular ICD (implantable cardioverter-defibrillator) in place; Other cardiomyopathy; LBBB (left bundle branch block) 5 Telephone [facility] Cardiology [address] [place] [address] [place] [phone] Anil Pedroza MD 5 Orders Only [facility] Medicine Psychiatry [address] [place] [address] [place] [phone] Agustina Franco NP 5 11:00 AM CDT Telemedicine [facility] Psychiatry [address] [facility] [address] [place] [phone] Agustina Franco NP KIA (generalized anxiety disorder) (Primary Dx); Cognitive impairment 5 Results Follow-Up [facility] Medicine Gastroenterolog y [address] [facility] Advanced Medicine 12th [place] [address] [place] [address] Trey Fink MD Surgical pathology 5 9:15 AM CDT Ancillary Procedure [facility] Cardiology [address] [place] [address] [place] [phone] Biventricular ICD (implantab le cardioverter-defibrillator) in place (Primary Dx); Nonischemic cardiomyopathy (HCC); LBBB (left bundle branch block); Paroxysmal SVT (supraventricular tachycardia); 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) 5 11:30 AM CDT - 5 12:00 PM CDT Surgery [facility] Endoscopy [address] [place] [address] Trey Fink MD ESOPHAGOGASTRODUODENOSCOPY BIOPSY 5 11:17 AM CDT Anesthesia Event [facility] Endoscopy [address] [place] [address] Waqas Burnham MD Cohen, Albert M., MD 5 10:21 AM CDT - 5 12:33 PM CDT Hospital Encounter [facility] Endoscopy [address] [place] [address] Trey Fink MD Nonalcoholic steatohepatitis (ORTIZ); Vomiting, unspecified vomiting type, unspecified whether nausea present Discharge Disposition: Discharge to home or self care from Last 3 Months Immunizations Immunization Administration Dates Next Due COVID-19 MRNA (MODERNA) .5 M L (50 MCG) VACCINE (12 YEARS AND UP) 03/20/2023 Influenza, Quad, Adjuvantate d, Intramuscular 03/22/2021 Influenza, Quadrivalent, Hig h Dose, Preservative Free, Intrr 03/20/2023,04/13/2022,04/10/2020,05/25 Influenza, Trivalent, High D ose, Split, Preservative Free, Intramuscular 05/25/2019 Influenza, Trivalent, IM (MDV) 7,03/21/2014,06/12/2013,03/15,02/10/2010,03/14/2008,05/18/2007 Influenza, Trivalent, Preser vative Free, Intramuscular 03/02/2016,03/07/2015 Influenza, Unspecified 03/25/2024,2022,04/13/2022,04/24,03/22/2021,04/10/2020,05/25/2019 ,03/12/2018 Moderna SARS-CoV-2 Monovalen t Vaccination (12+ YRS) 08/22/2020,07/25/2020 Pneumococcal Conjugate 7-Valent 03/16/2011 Pneumococcal Conjugate PCV 13 03/16/2018 Pneumococcal Polysaccharide PPV23 12/28/2020 RSV Vaccine, Pref, Recombina nt, Subunit, Adjuvanted, PF, IM (Arexvy) 03/20/2023 TD Preservative Free 12/10/1988 Tdap 03/16/2011,12/12/2007 ZOSTER LIVE 01/07/2013 ZOSTER Recombinant 05/15/2018,02/28/2018 Surgical History Surgery Date Site/Laterality Comments PARATHYROIDECTOMY 06/12/2002 - 06/11/2003 HEMICOLECTOMY 06/12/2010 - 06/11/2011 for intussuception APPENDECTOMY 06/12/2010 - 06/11/2011 VENTRAL HERNIA REPAIR FRACTURE SURGERY 1992 (wrist) 2018 rt. hip & rt. femur CHOLECYSTECTOMY 06/12/2016 - 06/11/2017 SMALL INTESTINE SURGERY 06/12/2010 - 06/11/2011 HIP SURGERY Right HYSTERECTOMY 06/12/1998 - 06/11/1999 JOINT REPLACEMENT 2015? ABDOMINAL SURGERY 06/12/2010 - 06/11/2011 BREAST BIOPSY 06/12/1978 - 06/11/1979 Left MECKEL DIVERTICULUM EXCISION CATARACT EXTRACTION 06/12/2023 - 06/11/2024 Medical History Medical History Date Comments Elevated LFTs fatty liver, kailash er mass Anxiety disorder Depression 2009 Fractures fractures of arm s, foot, elbow, ribs, toe; Comments: NAEL 10/13/2015 - Osteoporosis Comments: NAEL - Gout Comments: NAEL - GERD (gastroesophageal reflux disease) 2005 [place] Arthritis 2018 Asthma 2018 (?) Clotting disorder 1996 [place] Dysmenorrhea 1965 Heart disease Hypertension PATRICIA on CPAP Thyroid disease Menstrual problem 90 s Diverticulosis Colon polyp Fatty liver Adenoma of liver Coronary artery disease Hyperparathyroidism Skin cancer Emphysema of lung HIV disease (HCC) pt denies Chronic kidney disease Family History Medical History Relation Name Comments Asthma Brother 1 Ismael Clotting disorder Brother 1 Ismael Depression Brother 1 Ismael Hyperlipidemia Brother 1 Ismael Hyperlipidemi a; Hypertension Brother 1 Ismael Lung disease Brother 1 Ismael Parkinsonism Brother 1 Ismael icd Brother 1 Ismael Alcohol abuse Brother 2 Juan Clotting disorder Brother 2 Juan Alcohol abuse Father Jacob COPD Father Jacob Emphysema Father Jacob Emphysema; Heart failure Father Jacob Congestive hea rt failure; ELU 06/17/2016 -Cardiomyopathy Hypertension Father Jacob Lung disease Father Jacob Mental illness Father Jacob Osteoporosis Father Jacob Hearing loss Maternal Grandfather Pp Depression Maternal Grandmother Sheron Heart attack Maternal Grandmother Sheron [place]; Cau se of : [place] Depression Mother Rosetta Nowak Hyperlipidemia Mother Rosetta Nowak Hyperlipidemi a; Hypertension Mother Rosetta Nowak Hypertension; Miscarriages / Stillbirths Mother Rosetta Nowak Osteoporosis Mother Rosetta Nowak Abdominal Aortic Aneurysm Mother's Sister 3 AAA; Cause of : AAA Early Mother's Sister 3 Heart disease Mother's Sister 3 Hyperlipidemia Mother's Sister 3 Miscarriages / Stillbirths Mother's Sister 3 Early Mother's Sister 4 Nema Hearing loss Mother's Sister 4 Nema Other Mother's Sister 4 Nema CAD, DM; Miscarriages / Stillbirths Mother's Sister 5 Early Mother's Sister 6 Dasha Heart disease Mother's Sister 6 Dasha Early Mother's Sister 7 Dasha Heart disease Mother's Sister 7 Dasha Asthma Sister 1 Billie Asthma Sister 2 Billie Relation Name Status Comments Brother 1 Ismael Alive Brother 2 Juan Alive Brother 3 Haroldo Alive Father Jacob (Age 75) Maternal Grandfather Pp Maternal Grandmother Sheron (Age 70) Mother Rosetta Nowak (Age 93) Mother's Sister 1 (Age 70) Mother's Sister 2 Alive Mother's Sister 3 Nydia Mother's Sister 4 Nema Mother's Sister 5 Mother's Sister 6 Dasha Mother's Sister 7 Dasha Alive Sister 1 Billie Alive Sister 2 Billie Alive Social History Tobacco Use Types Packs/Day Years Used Date Smoking Tobacco: Former Cigarettes 1.5 25 0 11/19/1968 - 08/29/1992 Smokeless Tobacco: Never Tobacco Cessation:Counseling Given: Not Answered Comments:30 years ago Alcohol Use Standard Drinks/Week Comments Not Currently 0 (1 standard drink = 0.6 oz pur e alcohol) AUDIT-C Answer Date Recorded Q1: How often do you have a drink containing alcohol? Never 12/27/2024 Q2: How many drinks containi ng alcohol do you have on a typical day when you are drinking? Patient does not drink Q3: How often do you have si x or more drinks on one occasion? Never 12/27/2024 PHQ-2 Answer Date Recorded PHQ-2 Total Score (If total score is 3 or more points, staff should administer the PHQ-9) 0 03/20/2025 Personal Safety Answer Date Recorded Have you ever been in or are you currently in a harmful physical or emotional relationship or is someone making you feel afraid or unsafe? Denies 12/27/2024 Comments No Sex and Gender Information Value Date Recorded Sex Assigned at Female 08/27/2018 11:46 AM CDT Legal Sex Female 8:15 AM BREAKER TABLE WORKER Gender Identity Female 08/27/2018 11:46 AM CDT Sexual Orientation Straight 08/27/2018 11 :46 AM CDT Obstetrics History Para Term AB IAB SAB Ectopic Multiple Livin g Live Births 3 3 3 Date Outcome GA Total Labor Labor/2nd/3rd Weight Sex Type Anes PTL Kailash A1 A5 Name Clin Term Term Term Last Filed Vital Signs Vital Sign Reading Time Taken Comments Blood Pressure 102/61 12/27/2024 12:05 PM CDT Pulse 64 12/27/2024 12:05 PM CDT Temperature 36.7 C (98.1 F) 12/27/2024 11:45 AM CDT Respiratory Rate 16 12/27/2024 12:05 PM CDT Oxygen Saturation 93% 12/27/2024 12:05 PM CDT Inhaled Oxygen Concentration - - Weight 106.1 kg (234 lb) 12/27/2024 10:32 AM CDT Height 172.7 cm (5' 8) 12/27/2024 10:32 AM CDT Body Mass Index 35.58 12/27/2024 10:32 AM CDT Plan of Treatment Health Maintenance Due Date Last Done Comments Hemoglobin A1C 1950 Dilated Eye Exam 1950 Foot Exam 1950 Well Visit 65+ 01/26/2024 01/25/2023, 08/0 01/2022, 12/28/2020, Additional history exists Covid-19 Vaccine (2024-2 6 season) 2025 03/20/2023, 04/17/2022, 10/15/2021, Additional history exists Influenza Vaccine (#1) 2025 4, 03/20/2023, 03/20/2023, Additional history exists Depression Screening 08/19/2025 08/19/2024, 01/25/2023, 01/17/2022, Additional history exists Lipid Panel 08/19/2025 08/19/2024, 07/14, 08/27/2022, Additional history exists Breast Cancer Screening-Mammogram 10/31/2025 10/31/2024, 06/20/2023, 01/26/2022, Additional history exists eGFR 11/21/2025 11/21/2024, 08/10, 10/04/2023, Additional history exists Albumin Creatinine Ratio, Urine 11/27/2025 5, 08/11/2023 Fall Risk Assessment 12/27/2025 12/27/2024, 08/19/2024, 01/25/2023, Additional history exists Osteoporosis Screening-Bone Density Scan 10/31/2026 10/31/2024, 05/23/2022, 06/18/2019 Colon Cancer Screening-Colonoscopy 03/18/2032 03/18/2022 DTaP/Tdap/Td Vaccine Discontinued 03/16/2011, 12/12/2007, 12/10/1988 Zoster Vaccine Completed 05/15/2018, 02/10, 01/07/2013 Pneumococcal vaccine 65+ Completed 021, 03/16/2018, 03/16/2011 Hepatitis C Screening Completed 01/26/2022 Colon Cancer Screening-CT Colonography Discontinued 03/18/2022 Colon Cancer Screening-DNA Stool Discontinued 03/18/20 Colon Cancer Screening-FIT Discontinued 03/18/2022 Colon Cancer Screening-Sigmoidoscopy Discontinued 03/18/2022 Hepatitis B Screening Discontinued Medical Devices Implanted Type Area Sail Finisher Hand Device Identifier Shelf Expiration Date Model / Serial / Lot Icd-12/23/2010 Implanted:12/23 (Quantity not on file) ICD Chest [employer] NICM, CHF, LBBB Procedures Procedure Name Priority Date/Time Associated Diagnosis Comments DEVICE CHECK - IN OFFICE Routine 025 8:49 AM CDT Other congestive heart failure Biventricular ICD (implantable cardioverter-defib rillator) in place Other cardiomyopathy LBBB (left bundle branch block) DEVICE CHECK - REMOTE Routine 12/31/2024 9:57 AM CDT Nonischemic cardiomyopathy (HCC) LBBB (left bundle branch block) Paroxysmal SVT (supraventricular tachycardia) SURGICAL PATHOLOGY Routine 12/27/2024 11:29 AM CDT Nonalcoholic steatohepatitis (ORTIZ) Vomiting, unspecified vomiting type, unspecified whether nausea present EGD 12/27/2024 11:19 AM CDT ESOPHAGOGASTRODUODENOSCOPY BIOPSY 12/27/2024 11:18 AM CDT Nonalcoholic steatohepatitis (ORTIZ) Vomiting, unspecified vomiting type, unspecified whether nausea present ALBUMIN CREATININE RATIO, URINE Routine 11/27/2024 2:55 PM CDT COMPREHENSIVE METABOLIC PANEL Routine 12:42 PM CDT Stage 3a chronic kidney disease (HCC) DEXA AXIAL SKELETON BONE DENSITY 1 OR MORE SITES Schedule Routine, Read Routine (OP Routine) 10/31/2024 10:53 AM CDT Post-menopausal SCREENING MAMMOGRAM BILATERA L W BALA Schedule Routine, Read Routine (OP Routine) 10/31/2024 10:36 AM CDT Breast cancer screening by mammogram LIPID PANEL Routine 08/19/2024 3:14 PM CDT Essential hypertension Abnormal liver function tests Nonalcoholic steatohepatitis (ORTIZ) COLONOSCOPY 03/18/2022 12:27 PM CDT HEPATITIS C ANTIBODY Routine 01/26/2022 8:45 AM CDT Need for hepatitis C screening test from Last 3 Months or Most Recently Relevant to Health Maintenance Results * DEVICE CHECK - IN OFFICE (03/05/2025 8:49 AM CDT) Anatomical Region Laterality Modality Other Narrative 03/05/2025 8:[address] [employer] Biventricular ICD. Dx; NICM, CHF, LBBB. Gen change 07/30/2019-[facility]. Chronic leads 12/23/2010. [place] remote monitoring. Supervising MD: Dr Pedroza. Left pectoral incision well healed without signs of infection noted. Interrogation of DDD BIV ICD demonstrated appropriate device function. Battery function-Ok, 3.1 years remaining battery life to GERDA. Charge time-9.0 seconds. Appropriate lead measurements noted. Presenting rhythm- BIV Paced. Underlying rhythm-SR. AP-26%, BIVP-97%. Medications; Toprol XL. No Atrial high rate episodes noted. No Ventricular tachy arrhythmias noted. Atrial sensitivity changed from 0.5 to 0.4 mV for adequate safety margin per today's measurement. See scanned report. Bon remote f/u 06/10/2025. Office device f/u expected in 13-15 months. Maricruz Henderson, LAWANDA us [facility] Carmen Ramos MD [facility] PRO CEDURES Final Result * DEVICE CHECK - REMOTE (12/31/2024 9:57 AM CDT) Anatomical Region Laterality Modality Other Narrative 02/06/2025 10:49 AM CDT [employer] Biventricular ICD. Dx; NICM, CHF, LBBB. Gen change 07/30/2019-[facility]. Chronic leads 12/23/2010. [place] remote monitoring. Routine DDD ICD Remote. Transmission attached. Battery status 31%, 2.2 years remaining battery life to GERDA. Stable Charge time and Shock impedance. Stable lead impedances, pacing, and sensing threshold. Presenting rhythm: AP/BP AP-30 %, Bi-V P-96 %. (0) AT/AF episodes noted. (1) Ventricular tachy arrhythmias detected. IEGM demonstrates NSVT for 8 seconds. Medication: Toprol-XL 200 mg, olmesartan 40 mg Follow up: Office Pacemaker/ICD scheduled 03/05/25 Bon remote 5 months Ricky Vivas RN [facility] Carmen Ramos MD [facility] PRO CEDURES Final Result * Surgical pathology (12/27/2024 11:29 AM CDT) Tissue (Gastric/Stomach biopsy) 12/27/2024 11:29 AM CDT Tissue specimen (specimen) (Gastric/Stomach biopsy) 12/27/2024 11:33 AM CDT Tissue specimen (specimen) ([place], Biopsy) 12/27/2024 11:33 AM CDT Narrative PATHOLOGY [facility] - 12/30/2024 10:00 PM CDT EPIC results best viewed via link to PDF [facility] Erin Torres [facility] of [place] [address] Note to Patients: This report may contain a detailed description of human tissue sent by a health care provider to the laboratory for pathologic evaluation. The content of this report is essential for diagnosis and may provide important critical findings. This information may be unfamiliar to patients to review without a medical professional present. It is advised that the patient review this report in the presence of a health care provider who can answer questions and explain the details. SURGICAL PATHOLOGY REPORT FINAL Patient Name: MARI THAO Gender: F : 1950 (Age: 74) Address: [address] [place], [place] [id number] Hospital #: [id number] Taken:12/27/2024 Received:12/27/2024 Reported: 12/30/2024 Patient Type: [facility] EP SAME Client [facility] Service: Gastro Location: Physician(s): Ramses Peters NP Diagnosis: A. Stomach, antrum, endoscopic biopsy - Antrum with mild changes of of reactive gastropathy, including foveolar hyperplasia, and capillary dilatation - No acute or chronic gastritis - No Helicobacter by H&E sections - No evidence of intestinal metaplasia, dysplasia, or malignancy B. Stomach, fundus, endoscopic biopsy - No histopathologic abnormality - No acute or chronic gastritis - No Helicobacter by H&E sections - No evidence of intestinal metaplasia, dysplasia, or malignancy C. Stomach, gastroesophageal junction, endoscopic biopsy - Gastric cardiac mucosa show with with chronic inflammation and reactive mucosal changes - No active gastritis - No Helicobacter pylori by H&E sections - No evidence of intestinal metaplasia, dysplasia, or malignancy - No squamous mucosa identified giyi/12/29/2024 22:23 By this signature, I attest that the above diagnosis is based upon my personal examination of the slides(and/or other material indicated in the diagnosis). Fred Driscoll MD Report Electronically Reviewed and Signed Out By Fred Driscoll MD 12/30/2024 22:00:46 Microscopic Description and Comment: Microscopic examination substantiates the above cited diagnosis. Aissatou Washburn M.D. History: The patient is a 74-year-old woman who presents with nonalcoholic steatohepatitis and vomiting. Operative procedure: Upper GI endoscopy. Specimen(s) Received: A: Gastric antrum B: Gastric fundus C: Gastroesophageal junction Gross Description: Received in three formalin jars labeled with the patient's identifiers. A. Designated gastric antrum biopsy are four tissue fragments (0.2-0.4 cm) filtered in A1. Jar 0. B. Designated fundus biopsy is one tissue fragment (0.6 cm) filtered in B1. Jar 0. C. Designated GE junction biopsy are three tissue fragments (0.1-0.3 cm) filtered in C1. Jar 0. sxv/12/27/2024 13:24 PA(s): Rohan Lopez MS, PA ([facility])CM By this signature, I attest that the above diagnosis is based upon my personal examination of the slides(and/or other material). Addenda/Procedures Microscopic slide review and interpretation for this case was performed at [facility], Department of Surgical Pathology, [address] [facility] [place] [place] [id number], [place] [address] CLIA # [id number] The performance characteristics of some immunohistochemical stains, fluorescence in-situ hybridization tests and immunophenotyping by flow cytometry cited in this report (if any) were determined by the Surgical Pathology and Flow Cytometry Departments at [facility] as part of an ongoing manufacturing quality engineer program and in compliance with federally mandated regulations drawn from the Clinical Laboratory Improvement Act of 1988 (CLIA '88). Some of these tests rely on the use of analyte specific reagents and are subject to specific labeling requirements by the US Food and Drug Administration. Such diagnostic tests may only be performed in a facility that is certified by the Department of Health and Human Services as a high complexity laboratory under CLIA '88. The FDA has determined that such clearance or approval is not necessary. This test is used for clinical purposes. It should not be regarded as investigational or for research. Nevertheless, federal rules concerning the medical use of analyte specific reagents require that the following disclaimer be attached to the report: This test was developed and its performance characteristics determined by the Surgical Pathology and Flow Cytometry Departments of [facility]. It has not been cleared or approved by the U. S. Food and Drug Administration. IMAGES AND SCANNED DOCUMENTS, IF INCLUDED, ONLY VIEWABLE IN PDF VERSION OF REPORT us Trey Fink MD LAB PATHOLOGY ORDERABLES F inal Result PATHOLOGY [facility] [phone] * EGD (12/27/2024 11:19 AM CDT) Anatomical Region Laterality Modality Other Narrative Procedure Note Trey Fink MD - 12/27/2024 11:19 AM CDT ENDOSCOPY LAB Patient Name: Mari Thao Procedure Date: 12/27/2024 11:19 AM Date of : 1950 Admit Type: Outpatient Age: 74 Gender: Female Attending MD: Trey Fink M.D., Room: [facility] ENDOSCOPY ROOM 05 Note Status: Finalized Procedure: Upper GI endoscopy Indications: Vomiting Providers: Trey Fink M.D. Referring MD: Trey Fink M.D., Billie Jackson,Ryley Suárez M.D. Medicines: Monitored Anesthesia Care Complications: No immediate complications. Estimated Blood Loss: Estimated blood loss was minimal. Procedure: Pre-Anesthesia Assessment: - Immediately prior to administration ofmedications, the patient was re-assessed for adequacy to receive sedatives. After obtaining informed consent, the endoscope was passed under direct vision. Throughout theprocedure, the patient's blood pressure, pulse, and oxygen saturations were monitored continuously. The [id number] was introduced through the mouth,and advanced to the second part of duodenum. Findings: The examined duodenum was normal. Mildly erythematous mucosa without bleeding was found in the gastric antrum. Biopsies were taken with a cold forceps for histology. Mildly erythematous mucosa without bleeding was found in the gastric fundus. Biopsies were taken with a cold forceps for histology. Mildly friable mucosa with no bleeding was found at thegastroesophageal junction. Biopsies were taken with a cold forceps for histology. The examined esophagus was normal. Impression: - Normal examined duodenum. - Erythematous mucosa in the antrum. Biopsied. - Erythematous mucosa in the gastric fundus.Biopsied. - Friable gastric mucosa. Biopsied. - Normal esophagus. Recommendation: - Await pathology results. - Return to referring provider as previouslyscheduled. - - Attending Participation: I personally performed the entire procedure. Electronically signed by Trey Fink M.D. Trey Fink M.D. 12/27/2024 11:48:25 AM Number of Addenda: 0 Note Initiated On: 12/27/2024 11:19 AM us Trey Fink MD ENDOSCOPY PROCEDURES Final Result * Albumin Creatinine Ratio, Urine (11/27/2024 2:55 PM CDT) Creatinine ur 148.3 Not Estab. mg/dL [facility] - 01 Microalbumin, ur 3.5 Not Estab. ug/mL [facility] - 01 Microalbumin/cre at ratio 2 0 - 29 mg/g creat [facility] - 01 Comment: Normal: 0 - 29 Moderately increased: 30 - 300 Severely increased: >300 11/27/2024 2:55 PM CDT 11/27/2024 Narrative [facility] - 11/28/2024 2:10 PM CDT Performed at: [address] [place] [id number] [employer]: Shawn Solis PhD, Phone: [phone] us Mckinley España MD LAB URINE ORDERABLES Final Re sult [facility] - 01 * (ABNORMAL) Comprehensive metabolic panel (11/21/2024 12:42 PM CDT) Glucose 77 70 - 99 mg/dL [facility] - 01 BUN 10 8 - 27 mg/dL [facility] - 01 Creatinine, Serum 1.23(H) 0.57 - 1.00 mg/dL [facility] - 01 eGFR 47(L) >59 mL/min/1.7 3 [facility] - 01 BUN/creat ratio 8(L) 12 - 28 [facility] - 01 Sodium 142 134 - 144 mmol/L [facility] - 01 Potassium, sr 4.2 3.5 - 5.2 mmol/L [facility] - 01 Chloride 108(H) 96 - 106 mmol/L [facility] - 01 CO2 19(L) 20 - 29 mmol/L [facility] - 01 Calcium 10.3 8.7 - 10.3 mg/dL [facility] - 01 Protein, sr 6.8 6.0 - 8.5 g/dL [facility] - 01 Albumin 4.5 3.8 - 4.8 g/dL [facility] - 01 Globulin, Total 2.3 1.5 - 4.5 g/dL [facility] - 01 Bilirubin, Total 0.8 0.0 - 1.2 mg/dL [facility] - 01 Alk phos 105 44 - 121 IU/L [facility] - 01 AST 38 0 - 40 IU/L [facility] - 01 ALT 40(H) 0 - 32 IU/L [facility] - 01 Blood 11/21/2024 12:4 2 PM CDT 11/21/2024 Narrative [facility] - 11/22/2024 10:36 AM CDT Performed at: - [address] [id number] [employer]: Shawn Solis PhD, Phone: [phone] us Mckinley España MD LAB BLOOD ORDERABLES Final Re sult [facility] - 01 * Dexa Axial Skeleton Bone Density 1 or 2 Site (10/31/2024 10:53 AM CDT) Anatomical Region Laterality Modality Body N/A Mammography 10/31/2024 1:28 PM CDT Narrative 10/31/2024 1:28 PM CDT EXAM DESCRIPTION: DEXA AXIAL SKELETON BONE DENSITY 1 OR MORE SITES REASON FOR STUDY: 74 y/o year old F with given history of: Postmenopausal status. History prior fracture. Patient has taken/is taking Fosamax, vitamin-D and calcium. History of skin carcinoma. Sail Finisher Hand/Model: SYSTRAN A (S/N [id number]) Facility LSC value of 0.022 for the AP spine, 0.027 for the femur, and 0.023 for the forearm. CLINICAL INFORMATION: Current height: 69 inches Maximum height: 69 inches Weight: 237 pounds Risk factors: Prior fracture COMPARISON: 05/23/2022. Dissimilar scan types or analysis methods precludes assessment for calculating a significant change. FINDINGS: AP LUMBAR SPINE L1-L4: Total BMD is 0.970 g/cm2 T-score is -0.7 LEFT HIP: Total BMD is 0.731 g/cm2 T-score is -1.7 Femoral neck BMD is 0.593 g/cm2 T-score is -2.3 FRAX: 10 year risk for a major osteoporotic fracture is 20 %, 10 year risk for a hip fracture is 4.4 % Per National Osteoporosis Foundation guidelines, this patient does meet the criteria for pharmacological treatment of patients with FRAX 10 year major osteoporotic fracture risk scores of = or greater than 20% or a 10 year probability of a hip fracture = or greater than 3%, to reduce fracture risk. Additional factors such as frequent falls are not represented in FRAX and warrant individual clinical judgment. IMPRESSION: Low bone mass REFERENCE: Bone mineral density: T-Score: Normal (T-score above or = -1.0) Low bone mass (T-score between -1.0 and -2.5) replaces the previously used term osteopenia Osteoporosis (T-score = or below -2.5) Z-Score: Within the expected range for age (Z-score above -2.0) Below the expected range for age (Z-score is -2.0 or below) Please see below follow up recommendations. Medical evaluation for secondary causes of low bone mineral density may be appropriate. FRAX is a World Health Organization validated fracture risk assessment tool that calculates a person's 10 year probability of a major osteoporosis related fracture and hip fracture. According to the National Osteoporosis Foundation guidelines, postmenopausal women and men age 50 or older with low bone mass and a 10 year probability of a major osteoporosis related fracture = or greater than 20% or a 10 year probability of a hip fracture = or greater than 3% should be considered for pharmacological treatment for the prevention of osteoporosis. For further information, including treatment recommendations, please refer to the 2019 ISCD Official Positions (http://www.iscd.org) and the NOF's Clinician's Guide to Prevention and Treatment of Osteoporosis (http://www.nof.org/professionals/clinical-guidelines) THIS IS AN ELECTRONICALLY VERIFIED FINAL REPORT 10/31/2024 1:28 PM - Electronically signed by Sera Best M.D. TW: TW Report ID: [id number] Reading Location: [place] [address] Procedure Note Sera Best MD - 10/31/2024 EXAM DESCRIPTION: DEXA AXIAL SKELETON BONE DENSITY 1 OR MORE SITES REASON FOR STUDY: 74 y/o year old F with given history of:Postmenopausal status. History prior fracture. Patient has taken/is taking Fosamax, vitamin-D and calcium. History of skin carcinoma. Sail Finisher Hand/Model: SYSTRAN A (S/N [id number]) Facility LSC value of 0.022 for the AP spine, 0.027 for the femur, and0.023 for the forearm. CLINICAL INFORMATION: Current height: 69 inches Maximum height: 69 inches Weight: 237 pounds Risk factors: Prior fracture COMPARISON: 05/23/2022. Dissimilar scan types or analysis methodsprecludes assessment for calculating a significant change. FINDINGS: AP LUMBAR SPINE L1-L4: Total BMD is 0.970 g/cm2 T-score is -0.7 LEFT HIP: Total BMD is 0.731 g/cm2 T-score is -1.7 Femoral neck BMD is 0.593 g/cm2 T-score is -2.3 FRAX: 10 year risk for a major osteoporotic fracture is 20 %, 10 year risk for ahip fracture is 4.4 % Per National Osteoporosis Foundation guidelines, this patient does meetthe criteria for pharmacological treatment of patients with FRAX 10 year major osteoporotic fracture risk scores of = or greater than 20% or a 10 year probability of a hip fracture = or greater than 3%, to reduce fracturerisk. Additional factors such as frequent falls are not represented in FRAX and warrant individual clinical judgment. IMPRESSION: Low bone mass REFERENCE: Bone mineral density: T-Score: Normal (T-score above or = -1.0) Low bone mass (T-score between -1.0 and -2.5) replaces thepreviously used term osteopenia Osteoporosis (T-score = or below -2.5) Z-Score: Within the expected range for age (Z-score above -2.0) Below the expected range for age (Z-score is -2.0 or below) Please see below follow up recommendations. Medical evaluation forsecondary causes of low bone mineral density may be appropriate. FRAX is a World Health Organization validated fracture risk assessmenttool that calculates a person's 10 year probability of a major osteoporosisrelated fracture and hip fracture. According to the National OsteoporosisFoundation guidelines, postmenopausal women and men age 50 or older with low bonemass and a 10 year probability of a major osteoporosis related fracture = or greater than 20% or a 10 year probability of a hip fracture = or greaterthan 3% should be considered for pharmacological treatment for the preventionof osteoporosis. For further information, including treatment recommendations, please referto the 2019 ISCD Official Positions (http://www.iscd.org) and the NOF's Clinician's Guide to Prevention and Treatment of Osteoporosis (http://www.nof.org/professionals/clinical-guidelines) THIS IS AN ELECTRONICALLY VERIFIED FINAL REPORT 10/31/2024 1:28 PM - Electronically signed by Sera Best M.D. TW: PUJA Report ID: [id number] Reading Location: [id number] Billie Ames NP IMG DXA PROCEDURES Final Res ult * Screening Mammogram Bilateral W Bala (10/31/2024 10:36 AM CDT) Anatomical Region Laterality Modality Breast Bilateral Mammography Impressions 10/31/2024 10:50 AM CDT Bilateral No evidence of malignancy in either breast. OVERALL BI-RADS FINAL ASSESSMENT: 1 - Negative RECOMMENDATION: Recommend bilateral annual screening mammography. Narrative 10/31/2024 10:50 AM CDT EXAMINATION: Screening Mammogram Bilateral W Bala: 10/31/2024 COMPARISON: Relevant prior studies available at the time of interpretation were reviewed. TECHNIQUE: Mammography was performed with 2D and digital breast tomosynthesis (DBT) images. CAD was utilized. BREAST PARENCHYMAL COMPOSITION: There are scattered areas of fibroglandular density. FINDINGS: Bilateral There is no suspicious mass, calcification, or architectural distortion in either breast.A cardiac pacemaker is present on the left. us Billie Ames RN ORTHOPEDIC IMG MAMMO PROCEDURES Final R esult * (ABNORMAL) Lipid panel (08/19/2024 3:14 PM CDT) Cholesterol 155 100 - 199 mg/dL [facility] - 01 Triglycerides 163(H) 0 - 149 mg/dL [facility] - 01 HDL Cholesterol 50 >39 mg/dL [facility] - 01 VLDL 28 5 - 40 mg/dL [facility] - 01 LDL, calculated 77 0 - 99 mg/dL [facility] - 01 Blood 08/19/2024 3:14 PM CDT 10/04/2024 Narrative [facility] - 10/05/2024 8:11 AM CDT Performed at: [address] [place] [id number] [employer]: Shawn Solis PhD, Phone: [phone] us Billie Ames NP LAB BLOOD ORDERABLES Final R esult [facility] - 01 * COLONOSCOPY (03/18/2022 12:27 PM CDT) Anatomical Region Laterality Modality Other Narrative Procedure Note Trey Fink MD - 03/18/2022 12:27 PM CDT [facility] Patient Name: Mari Thao Procedure Date: 03/18/2022 12:27 PM Date of : 1950 Admit Type: Outpatient Age: 71 Gender: Female Attending MD: Trey Fink M.D. Room: [facility] ENDOSCOPY ROOM 9 Note Status: Finalized Procedure: Colonoscopy Indications: Screening for colorectal malignant neoplasm, Last colonoscopy 10 years ago Referring MD: Trey Fink M.D., Marcelino Wilcox PA-C Providers: Trey Fink M.D. Medicines: Monitored Anesthesia Care Complications: No immediate complications. Estimated Blood Loss: Estimated blood loss was minimal. Procedure: Pre-Anesthesia Assessment: - Immediately prior to administration ofmedications, the patient was re-assessed for adequacy to receive sedatives. - The risks and benefits of the procedure and the sedation options and risks were discussed with the patient. All questions were answered and informed consent was obtained. The benefits, risks and alternatives of theprocedure and sedation were discussed and informed consentwas obtained. All questions were answered. Please referto the signed informed consent document in the medical record. The scope was passed under direct vision.The [id number] endoscope was introduced through the anus and advanced to the ileocolonicanastomosis. The bowel preparation used was GoLYTELY via splitdose instruction. Bowel prep was administered using asplit dose. The quality of the bowel preparation was excellent. The quality of the bowel preparation was evaluated using the BBPS ([place] Bowel Preparation Scale) with scores of: Transverse Colon = 3 (entire mucosa seen well with no residual staining, small fragments of stool or opaque liquid) and Left Colon= 3 (entire mucosa seen well with no residualstaining, small fragments of stool or opaque liquid). Thetotal BBPS score equals 6. The quality of the bowel preparation was excellent. Findings: A 5 mm polyp was found in the transverse colon. The polyp wassessile. The polyp was removed with a cold snare. Resection and retrieval were complete. Multiple small and large-mouthed diverticula were found in thesigmoid colon. A 3 mm polyp was found in the recto-sigmoid colon. The polyp was sessile. The polyp was removed with a cold snare. Resection and retrieval were complete. Non-bleeding hemorrhoids were found. Impression: - One 5 mm polyp in the transverse colon, removedwith a cold snare. Resected and retrieved. - Diverticulosis in the sigmoid colon. - One 3 mm polyp at the recto-sigmoid colon,removed with a cold snare. Resected and retrieved. - Non-bleeding hemorrhoids. Recommendation: - Await pathology results. - Return to referring physician as previously scheduled. Attending Participation: I personally performed the entire procedure. Electronically signed by Trey Fink M.D. Trey Fink M.D. 03/18/2022 1:04:37 PM . Number of Addenda: 0 Note Initiated On: 03/18/2022 12:27 PM Recognized by the [place] [employer] for promoting quality in endoscopy Trey Fink MD ENDOSCOPY PROCEDURES Final Result * Hepatitis C antibody (01/26/2022 8:45 AM CDT) Hep C Ab Nonreactive Nonreactive SHANTEL MOSLEY Comment: Interpretive Data Nonreactive: Antibodies to HCV not detected. Does NOT exclude the possibility of recent exposure to HCV. Equivocal: Equivocal for HCV antibodies. Supplemental molecular testing will be automatically performed to determine infection status in accordance with current CDC screening recommendations. Reactive: Positive for HCV antibodies. This may represent current or past HCV infection. Supplemental molecular testing will be automatically performed to determine current infection status in accordance with current CDC screening recommendations. Interpretive data was last revised on 2019. Blood 01/26/2022 8:45 AM CDT 01/26/2022 2:45 PM CDT Marcelino MONTOYA LAB MICROBIOLOGY - GENERAL CHANTEL DECKER Final Result [facility] [address] [facility] Department [place] [address] from Last 3 Months or Most Recently Relevant to Health Maintenance Insurance AETNA MEDICARE AETNA MEDICARE [facility] MEDICARE [facility]IC[facility] [id number] Advance Directives For more information, please contact: [phone] * Full Code (Latest Code Status on File) Date Activated Date Inactivated Comments 12/27/2024 10:23 AM 12/27/2024 4:33 PM * Full Code Date Activated Date Inactivated Comments 03/18/2022 12:20 PM 03/18/2022 6:03 PM Care Teams Food Tester Relationship Specialty Start Date End Date Billie Ames NP [address] [place] [address] PCP - General Family Medicine 08/19/24 Ryley Suárez MD [address] [place] [address] Referring Physician Internal Medicine 01/19/23
--- OUTSIDE RECORDS SUMMARY | 2025-03-27 09:34 | XMS_ITS | Clinical Summary ---
Author Organization [employer] [facility] Address [address] 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
--- OUTSIDE RECORDS SUMMARY | 2025-03-27 09:34 | XMS_ITS | Encounter Summary ---
Author Organization [facility] Address [address] [place] [address] Care Team Providers Care Superintendent Oil Field Drilling Name Role Phone Unavailable Primary Care Provider Unavailabl e Encounter Details Date Type Department Care Team (Late st Contact Info) Description 05/12/2008 Emergency [facility] [place], Authorized P NO ADDRESS ON FILE Raad GodfreyDO annia [address] [facility] [address] [place] [address] Social History Tobacco Use Types Packs/Day Years Used Date Smoking Tobacco: Never Assessed Comments Unknown Sex and Gender Information Value Date Recorded Sex Assigned at Not on file Legal Sex Female 5:40 AM ANIMAL HEALTH TECHNICIAN Gender Identity Not on file Sexual Orientation Not on file documented as of this encounter Plan of Treatment Not on file documented as of this encounter Procedures Procedure Name Priority Date/Time Associated Diagnosis Comments CBC WITH DIFFERENTIAL Stat 05/12/2008 10:05 PM ANIMAL HEALTH TECHNICIAN TSH Stat 05/12/2008 10:05 PM ANIMAL HEALTH TECHNICIAN COMPREHENSIVE METABOLIC PANEL Stat 05/12/2008 10:05 PM ANIMAL HEALTH TECHNICIAN documented in this encounter Results * CBC WITH DIFFERENTIAL (05/12/2008 10:05 PM ANIMAL HEALTH TECHNICIAN) MCV 91.4 82.0 - 99.0 fL [facility] PLATELETS 264 140 - 350 K/uL [facility] HEMOGLOBIN 14.4 11.8 - 14.8 g/dL [facility] RDW 13.6 11.5 - 14.5 % [facility] WBC 7.6 4.0 - 9.8 K/uL [facility] MCH 30.9 27.2 - 32.6 pg [facility] MPV 10.3 9.3 - 12.4 fL [facility] HEMATOCRIT 42.6 35.5 - 44.0 % [facility] RDW-STDEV 44.7 37.1 - 48.7 fL [facility] RBC 4.66 3.90 - 4.90 M/uL [facility] MCHC 33.8 31.5 - 35.5 % [facility] NEUTROPHILS 59 45 - 70 % [facility] NEUTROPHIL ABSOLUTE 4.44 1.90 - 7.00 K/uL [facility] EOSINOPHILS 2 0 - 7 % [facility] EOSINOPHIL ABSOLUTE 0.13 0.00 - 0.70 K/uL [facility] LYMPHOCYTES 32 16 - 45 % [facility] LYMPHOCYTE ABSOLUTE 2.41 0.70 - 4.50 K/uL [facility] BASOPHILS ABSOLUTE 0.03 0.00 - 0.20 K/uL [facility] BASOPHILS 0 0 - 2 % [facility] MONOCYTES 8 3 - 13 % [facility] MONOCYTE ABSOLUTE 0.57 0.10 - 1.30 K/uL [facility] Blood specimen (specimen) 05/12/2008 10:05 PM ANIMAL HEALTH TECHNICIAN 05/12/2008 10:14 PM ANIMAL HEALTH TECHNICIAN us Winston Godfrey DO HEMATOLOGY ORDERABLES Edited INTERFACE SYSTEM Refer to clinic/hospital department [facility] CLIA# [id number] [address] [address] * TSH (05/12/2008 10:05 PM ANIMAL HEALTH TECHNICIAN) TSH 3.50 0.27 - 4.20 uU/mL [facility] Blood specimen (specimen) 05/12/2008 10:05 PM ANIMAL HEALTH TECHNICIAN 05/12/2008 10:14 PM ANIMAL HEALTH TECHNICIAN Winston Godfrey DO CHEMISTRY ORDERABLES Final R esult INTERFACE SYSTEM Refer to clinic/hospital department [facility] CLIA# [id number] [address] [place], [place] [address] * (ABNORMAL) COMPREHENSIVE METABOLIC PANEL (05/12/2008 10:05 PM ANIMAL HEALTH TECHNICIAN) GLUCOSE 102(H) 65 - 99 mg/dL [facility] AST 26 12 - 32 U/L [facility] BUN 13 6 - 20 mg/dL [facility] CALCIUM 10.3(H) 8.6 - 10.2 mg/dL [facility] CHLORIDE 102 96 - 108 mmol/L [facility] ALBUMIN 4.6 3.4 - 4.8 g/dL [facility] CREATININE 0.55 0.51 - 0.95 mg/dL [facility] SODIUM 145 135 - 145 mmol/L [facility] ALT 27 0 - 31 U/L [facility] ALKALINE PHOSPHATASE 78 35 - 104 U/L [facility] BILIRUBIN TOTAL 0.2 0.2 - 1.0 mg/dL [facility] CO2 29 22 - 30 mmol/L [facility] TOTAL PROTEIN 8.1 6.3 - 8.6 g/dL [facility] POTASSIUM 3.3(L) 3.5 - 4.9 mmol/L [facility] GFR, >60 >=60 mL/min/1. 7 sq meter [facility] GFR >60 >=60 mL/min/1. 7 sq meter [facility] Comment: Modification of Diet in Renal Disease (MDRD) study formula. Estimated GFR rate interpretative information for both Americans and non- Americans is available on the [facility] Intranet at: [email or web address] Select: Lab Policies and Procedures Select: Reference Ranges - GFR Blood specimen (specimen) 05/12/2008 10:05 PM ANIMAL HEALTH TECHNICIAN 05/12/2008 10:14 PM ANIMAL HEALTH TECHNICIAN us Winston Godfrey DO CHEMISTRY ORDERABLES Edited INTERFACE SYSTEM Refer to clinic/hospital department [facility] CLIA# [id number] [address] [place] [address] documented in this encounter Visit Diagnoses Not on filedocumented in this encounter
--- OUTSIDE RECORDS SUMMARY | 2025-03-27 09:34 | XMS_ITS | Clinical Summary ---
Author Organization [facility] Address [address] [place] [address] Care Team Providers Care Steam Shovel Runner Name Role Phone Unavailable Primary Care Provider Unavailabl e Social History Tobacco Use Types Packs/Day Years Used Date Smoking Tobacco: Never Assessed Comments Unknown Sex and Gender Information Value Date Recorded Sex Assigned at Not on file Legal Sex Female 5:28 PM CDT Gender Identity Not on file Sexual Orientation Not on file Plan of Treatment Health Maintenance Due Date Last Done Comments Colorectal Cancer Screening Colonoscopy (10 Years) 1952 Hepatitis C 1970 DTaP, Tdap and Td Vaccines ( 1 - Tdap) 1971 Mammogram Screening 1992 Pneumococcal Vaccine: 50+ Ye ars (1 of 1 - PCV) 2002 Zoster Vaccines (1 of 2) 2002 Dexa Scan (General) 2017 COVID-19 Vaccine ( - 2023-2 5 season) 2025 Influenza Adult (#1) 2025 RSV Immunization or 60+ Years (1 - 1-dose 75+ series) 2027 Meningococcal B Vaccine Aged Out No l onger eligible based on patient's age to complete this topic Meningococcal Vaccine Aged Out No sid pia eligible based on patient's age to complete this topic RSV Immunizations Under 20 Months Aged Out No longer eligible based on patient's age to complete this topic
--- OUTSIDE RECORDS SUMMARY | 2025-03-27 09:34 | XMS_ITS | Encounter Summary ---
Author Organization [facility] Address [address] [place] [address] Phone Care Team Providers Care Retail Worker Name Role Phone Renay Mckeon RN Unavailable [phone] Ryley Suárez MD Unavailable [phone] Billie Ames NP Primary Care Provider Encounter Details Date Type Department Care Team (Latest Contact Info) Description 12/16/2010 Orders Only [facility] Scanning, Provider Social History Tobacco Use Types Packs/Day Years Used Date Smoking Tobacco: Never Assessed Comments Unknown Sex and Gender Information Value Date Recorded Sex Assigned at Female 08/27/2018 11:46 AM CDT Legal Sex Female 8:15 AM MEDICAL APPOINTMENT SCHEDULER Gender Identity Female 08/27/2018 11:46 AM CDT Sexual Orientation Straight 08/27/2018 11 :46 AM CDT documented as of this encounter Plan of Treatment Not on file documented as of this encounter Procedures Procedure Name Priority Date/Time Associated Diagnosis Comments SCAN - LABS 12/16/2010 documented in this encounter Results * SCAN - LABS (12/16/2010) us Provider Scanning Final Result documented in this encounter Visit Diagnoses Not on filedocumented in this encounter Care Teams Retail Worker Relationship Specialty Start Date End Date Billie Ames NP [address] [place] [address] PCP - General Family Medicine 08/19/24 Renay Mckeon, RN Licensing Representative 03/09/22 03/17/22 Ryley Suárez MD [address] [place] [address] Referring Physician Internal Medicine 01/19/23 documented as of this encounter
== END 2025-03-27 08:56 | disposition home or self-care (01) ==
PROVIDERS: PCP Physician Assistant; Visit Provider Nurse Practitioner Adult Health
DX: Z13.6 Encounter for screening for cardiovascular disorders (principal); Z82.49 Family history of ischemic heart disease and other diseases of the circulatory system
CPT/HCPCS: 76775